=== PATIENT | female | born 1965 | race Caucasian/White ===

== ENCOUNTER 2023-08-04 14:45 | Outpatient (CLI) | payer MEDICARE, OTHER, SELFPAY ==
--- NOTE | 2023-08-04 14:57 | MM_ITS ---
WS: [id number] BILATERAL 3D TOMOSYNTHESIS DIGITAL SCREENING MAMMOGRAPHY WITH CAD CLINICAL INFORMATION: SCREENING HISTORY: Screening mammogram. No current complaints. COMPARISON: 2019 TECHNIQUE: Bilateral CC and MLO views. FINDINGS: The breasts are composed of heterogeneous nodular fibroglandular tissue, which can limit the detectio n of small underlying mass lesions. Parenchymal pattern is unchanged since the outside examination. N o suspicious mass, asymmetry, calcifications, or architectural distortion. No evidence of malignancy. IMPRESSION: MM/[place] [id number] BI-RADS: 2-Benign FOLLOW UP: 1 Year Follow-up Recommend return to annual screening mammography.
== END 2023-08-04 14:46 | disposition home or self-care (01) ==
PROVIDERS: PCP Family Medicine; Visit Provider Family Medicine
DX: Z12.31 Encounter for screening mammogram for malignant neoplasm of breast (principal)
CPT/HCPCS: 77063; 77067

== ENCOUNTER → 2023-09-22 09:04 | Outpatient (BNVA) | payer MEDICARE, OTHER, SELFPAY | PROVIDERS: PCP Family Medicine; Referring Provider Family Medicine; Visit Provider Specialist | DX: G37.3 Acute transverse myelitis in demyelinating disease of central nervous system (principal); G81.10 Spastic hemiplegia affecting unspecified side; G82.20 Paraplegia, unspecified | CPT/HCPCS: 99205 ==

== ENCOUNTER → 2024-01-11 09:58 | Outpatient (BNVA) | payer MEDICARE, OTHER, SELFPAY | PROVIDERS: PCP Family Medicine; Visit Provider Specialist | DX: G37.3 Acute transverse myelitis in demyelinating disease of central nervous system (principal); G83.9 Paralytic syndrome, unspecified; G80.1 Spastic diplegic cerebral palsy | CPT/HCPCS: 64642; 99213; J0585 ==

== ENCOUNTER → 2024-04-11 09:55 | Outpatient (BNVA) | payer MEDICARE, OTHER, SELFPAY | PROVIDERS: PCP Family Medicine; Visit Provider Specialist | DX: G37.3 Acute transverse myelitis in demyelinating disease of central nervous system (principal); G95.11 Acute infarction of spinal cord (embolic) (nonembolic) | CPT/HCPCS: 64642; 99214; J0585 ==

== ENCOUNTER → 2024-07-11 11:33 | Outpatient (BNVA) | payer MEDICARE, OTHER, SELFPAY | PROVIDERS: PCP Family Medicine; Visit Provider Specialist | DX: G37.3 Acute transverse myelitis in demyelinating disease of central nervous system (principal); G95.11 Acute infarction of spinal cord (embolic) (nonembolic) | CPT/HCPCS: 64642; 99213; J0585 ==

== ENCOUNTER 2024-08-19 11:28 | Outpatient (CLI) | payer MEDICARE, OTHER, SELFPAY ==
--- NOTE | 2024-08-19 11:29 | MM_ITS ---
WS: [id number] BILATERAL SCREENING DIGITAL TOMOSYNTHESIS MAMMOGRAM WITH CAD HISTORY: SCREENING COMPARISON: 08/04/2023, 03/12/2019 Bilateral CC and MLO views with tomosynthesis and synthetic mammography submitted. Computer aided det ection analyzed. Breast composition: The breasts are heterogeneously dense, which may obscure small masses. No suspici ous masses, microcalcifications or architectural distortion. There are a few scattered benign calcifi cations. MM/MM Psychiatric tomosynthesis [id number] IMPRESSION: BI-RADS: 2 - Benign FOLLOW UP: 1 Year Follow-up
== END 2024-08-19 11:29 | disposition home or self-care (01) ==
LOC: RAD 11:28
PROVIDERS: PCP Family Medicine; Visit Provider Family Medicine
DX: Z12.31 Encounter for screening mammogram for malignant neoplasm of breast (principal)
CPT/HCPCS: 77063; 77067

== ENCOUNTER → 2024-10-18 11:28 | Outpatient (BNVA) | payer MEDICARE, OTHER, SELFPAY | PROVIDERS: PCP Family Medicine; Visit Provider Specialist | DX: G81.11 Spastic hemiplegia affecting right dominant side (principal); G37.3 Acute transverse myelitis in demyelinating disease of central nervous system; G95.11 Acute infarction of spinal cord (embolic) (nonembolic) | CPT/HCPCS: 64642; J0585 ==

== ENCOUNTER → 2025-01-10 11:42 | Outpatient (BNVA) | payer MEDICARE, OTHER, SELFPAY | PROVIDERS: PCP Family Medicine; Visit Provider Specialist | DX: G37.3 Acute transverse myelitis in demyelinating disease of central nervous system (principal); G95.11 Acute infarction of spinal cord (embolic) (nonembolic) | CPT/HCPCS: 64642; J0585 ==

== ENCOUNTER → 2025-04-11 11:11 | Outpatient (BNVA) | payer MEDICARE, OTHER, SELFPAY | PROVIDERS: PCP Family Medicine; Visit Provider Specialist | DX: G37.3 Acute transverse myelitis in demyelinating disease of central nervous system (principal); G95.11 Acute infarction of spinal cord (embolic) (nonembolic) | CPT/HCPCS: 64642; J0585; J9999 ==

== ENCOUNTER → 2025-07-17 10:36 | Outpatient (BNVA) | payer MEDICARE, OTHER, SELFPAY | PROVIDERS: PCP Family Medicine; Visit Provider Specialist | DX: G83.9 Paralytic syndrome, unspecified (principal); G37.3 Acute transverse myelitis in demyelinating disease of central nervous system; G95.11 Acute infarction of spinal cord (embolic) (nonembolic) | CPT/HCPCS: 64642 ==